=== PATIENT | male | born 1960 | race Caucasian/White ===

== ENCOUNTER 2020-04-27 11:15 | Outpatient (CLI) | payer BC ==
[2020-04-27 13:39] LABS: APPEARANCE,URINE CLEAR (CLEAR); BILIRUBIN,URINE NEGATIVE (NEGATIVE); BLOOD, URINE NEGATIVE Ery/uL (NEGATIVE); COLOR,URINE YELLOW (YELLOW); KETONES,URINE NEGATIVE (NEGATIVE); LEUKOCYTE ESTERASE ,URINE NEGATIVE (NEGATIVE); NITRITE, URINE NEGATIVE (NEGATIVE); PH,URINE 6.5 (5.0-8.0); PROTEIN,URINE NEGATIVE (NEGATIVE); UGLUCOSE NEGATIVE (NEGATIVE); UROBILINOGEN,URINE 0.2 EU/dL (0.2)
[2020-04-27 13:43] LABS: ALANINE AMINOTRANSFERASE 18 U/L (12-78); ALBUMIN 3.7 g/dL (3.4-5.0); ALKALINE PHOSPHATASE 62 U/L (46-116); ASPARTATE AMINOTRANSFERASE 14 U/L (15-37); BILIRUBIN,TOTAL 0.3 mg/dL (0.2-1.0); CALCIUM, SERUM 8.7 mg/dL (8.5-10.1); CARBON DIOXIDE 28 mmol/L (21-32); CHLORIDE 105 mmol/L (98-107); CREATININE 0.8 mg/dL (0.6-1.3); GLUCOSE 88 mg/dL (74-106); POTASSIUM 4.1 mmol/L (3.5-5.1); SODIUM SERUM 140 mmol/L (136-145); UREA NITROGEN, BLOOD 11 mg/dL (7-18)
[2020-04-27 13:49] LABS: CHOLESTEROL 150 mg/dL (<200); HDL CHOLESTEROL 44 mg/dL (40-60); LDL 100 mg/dL (0-99); PROSTATE SPECIFIC ANTIGEN SCR 1.06 ng/mL (0.00-4.00); THYROID STIMULATING HORMONE 1.405 uIU/mL (0.358-3.74); TRIGLYCERIDES 86 mg/dL (30-150)
[2020-04-27 14:06] LABS: C-REACTIVE PROTEIN < 0.2 mg/dL (0.0-0.9)
[2020-04-27 14:13] LABS: BASOPHILS % (AUTO) 0.7 % (0.0-2.0); EOSINOPHILS % (AUTO) 1.8 % (0.0-6.0); HEMATOCRIT 44 % (39-51); HEMOGLOBIN 14.8 g/dL (13.5-17.5); LYMPHOCYTES # (AUTO) 1.7 /CMM (0.8-4.8); MEAN CORPUSCULAR HGB CONC 34 g/dl (31.0-36.0); MEAN CORPUSCULAR VOLUME 95 fL (80-96); MONOCYTES # (AUTO) 0.4 /CMM (0.1-1.30); MONOCYTES % (AUTO) 7.9 % (2.0-12.0); NEUTROPHILS % (AUTO) 57.6 % (43.0-81.0); PLATELET COUNT (AUTO) 180 /CMM (150-450); RED BLOOD CELL COUNT(AUTO) 4.68 MIL/uL (4.5-6.0); WHITE BLOOD COUNT (AUTO) 5.2 K/uL (4.3-11.0)
[2020-04-28 08:12] LABS: FOLIC ACID 10.3 ng/mL (>3.0)
== END 2020-04-27 23:59 | disposition home or self-care (01) ==
LOC: MSC 11:15
PROVIDERS: ATTEND Internal Medicine
DX: R07.9 Chest pain, unspecified (principal); R29.898 Other symptoms and signs involving the musculoskeletal system; E29.1 Testicular hypofunction; Z95.5 Presence of coronary angioplasty implant and graft; Z86.79 Personal history of other diseases of the circulatory system; Z87.09 Personal history of other diseases of the respiratory system
CPT/HCPCS: 36415; 80053-TC; 80061-TC; 81000-TC; 84153-TC; 84403; 84439-TC; 84443-TC; 85025-TC; 85652-TC; 86140-TC; 86850-TC

== ENCOUNTER 2020-06-09 11:29 | Outpatient (CLI) | payer BC | END 2020-06-09 23:59 | disposition home or self-care (01) | LOC: MSC 11:29 | PROVIDERS: ATTEND Internal Medicine | DX: R07.9 Chest pain, unspecified (principal); I25.10 Atherosclerotic heart disease of native coronary artery without angina pectoris; Z95.5 Presence of coronary angioplasty implant and graft; E78.5 Hyperlipidemia, unspecified; R86.1 Abnormal level of hormones in specimens from male genital organs; R63.4 Abnormal weight loss; Z68.23 Body mass index [BMI] 23.0-23.9, adult; Z87.09 Personal history of other diseases of the respiratory system ==

== ENCOUNTER 2020-07-05 09:37 | Outpatient (CLI) | payer BC | END 2020-07-05 23:59 | disposition home or self-care (01) | LOC: MSC 09:37 | PROVIDERS: ATTEND Internal Medicine | DX: R53.1 Weakness (principal); R07.9 Chest pain, unspecified; E78.5 Hyperlipidemia, unspecified; E29.1 Testicular hypofunction; R63.4 Abnormal weight loss; Z68.25 Body mass index [BMI] 25.0-25.9, adult; Z87.09 Personal history of other diseases of the respiratory system ==

== ENCOUNTER 2020-07-28 10:34 | Outpatient (CLI) | payer BC | END 2020-07-28 23:59 | disposition home or self-care (01) | LOC: MSC 10:34 | PROVIDERS: ATTEND Internal Medicine | DX: R07.9 Chest pain, unspecified (principal); R53.1 Weakness; E78.5 Hyperlipidemia, unspecified; E29.1 Testicular hypofunction; R63.4 Abnormal weight loss; Z68.24 Body mass index [BMI] 24.0-24.9, adult; Z87.09 Personal history of other diseases of the respiratory system; Z79.01 Long term (current) use of anticoagulants ==

== ENCOUNTER 2020-08-11 08:53 | Outpatient (CLI) | payer BC | END 2020-08-11 23:59 | disposition home or self-care (01) | LOC: MSC 08:53 | PROVIDERS: ATTEND Internal Medicine | DX: R53.1 Weakness (principal); R07.9 Chest pain, unspecified; Z95.5 Presence of coronary angioplasty implant and graft; Z79.01 Long term (current) use of anticoagulants; Z87.09 Personal history of other diseases of the respiratory system; E78.5 Hyperlipidemia, unspecified; E29.1 Testicular hypofunction; Z79.899 Other long term (current) drug therapy ==

== ENCOUNTER 2020-08-18 09:03 | Outpatient (CLI) | payer BC | END 2020-08-18 23:59 | disposition home or self-care (01) | LOC: MSC 09:03 | PROVIDERS: ATTEND Internal Medicine | DX: R53.1 Weakness (principal); M54.2 Cervicalgia; E78.5 Hyperlipidemia, unspecified; E29.1 Testicular hypofunction; Z98.61 Coronary angioplasty status; Z87.09 Personal history of other diseases of the respiratory system; Z86.19 Personal history of other infectious and parasitic diseases; Z79.899 Other long term (current) drug therapy ==

== ENCOUNTER 2020-09-13 11:10 | Outpatient (CLI) | payer BC | END 2020-09-13 23:59 | disposition home or self-care (01) | LOC: MSC 11:10 | PROVIDERS: ATTEND Internal Medicine | DX: R53.1 Weakness (principal); M99.61 Osseous and subluxation stenosis of intervertebral foramina of cervical region; E78.5 Hyperlipidemia, unspecified; E29.1 Testicular hypofunction; Z98.61 Coronary angioplasty status; Z87.09 Personal history of other diseases of the respiratory system; Z79.899 Other long term (current) drug therapy ==

== ENCOUNTER 2020-10-04 10:51 | Outpatient (CLI) | payer BC | END 2020-10-04 23:59 | disposition home or self-care (01) | LOC: MSC 10:51 | PROVIDERS: ATTEND Internal Medicine | DX: R53.1 Weakness (principal); I25.10 Atherosclerotic heart disease of native coronary artery without angina pectoris; Z95.5 Presence of coronary angioplasty implant and graft; Z79.82 Long term (current) use of aspirin; Z79.899 Other long term (current) drug therapy; M50.10 Cervical disc disorder with radiculopathy, unspecified cervical region; F41.8 Other specified anxiety disorders; Z86.19 Personal history of other infectious and parasitic diseases; E78.5 Hyperlipidemia, unspecified; Z87.898 Personal history of other specified conditions ==

== ENCOUNTER 2020-10-13 12:51 | Outpatient (CLI) | payer BC | END 2020-10-13 23:59 | disposition home or self-care (01) | LOC: MSC 12:51 | PROVIDERS: ATTEND Internal Medicine | DX: R53.1 Weakness (principal); F41.8 Other specified anxiety disorders; B96.81 Helicobacter pylori [H. pylori] as the cause of diseases classified elsewhere; E78.5 Hyperlipidemia, unspecified; E29.1 Testicular hypofunction; M48.02 Spinal stenosis, cervical region; Z87.09 Personal history of other diseases of the respiratory system; Z98.61 Coronary angioplasty status; R89.1 Abnormal level of hormones in specimens from other organs, systems and tissues; Z79.899 Other long term (current) drug therapy ==

== ENCOUNTER → 2020-10-27 | Outpatient (CLI) | payer BC | END | disposition home or self-care (01) | LOC: MSC 11:30 | PROVIDERS: ATTEND Internal Medicine | DX: R53.1 Weakness (principal); F41.8 Other specified anxiety disorders; B96.81 Helicobacter pylori [H. pylori] as the cause of diseases classified elsewhere; Z86.16 Personal history of COVID-19; M48.02 Spinal stenosis, cervical region; Z86.39 Personal history of other endocrine, nutritional and metabolic disease; Z95.5 Presence of coronary angioplasty implant and graft; Z87.09 Personal history of other diseases of the respiratory system; E78.5 Hyperlipidemia, unspecified; Z71.3 Dietary counseling and surveillance; Z79.01 Long term (current) use of anticoagulants; Z79.82 Long term (current) use of aspirin; Z79.1 Long term (current) use of non-steroidal anti-inflammatories (NSAID); Z79.899 Other long term (current) drug therapy ==

== ENCOUNTER → 2020-11-01 | Outpatient (CLI) | payer BC | END | disposition home or self-care (01) | LOC: MSC 10:30 | PROVIDERS: ATTEND Internal Medicine | DX: R53.1 Weakness (principal); F41.8 Other specified anxiety disorders; Z86.16 Personal history of COVID-19; M48.02 Spinal stenosis, cervical region; Z86.39 Personal history of other endocrine, nutritional and metabolic disease; Z95.5 Presence of coronary angioplasty implant and graft; E78.5 Hyperlipidemia, unspecified; Z79.01 Long term (current) use of anticoagulants; Z79.82 Long term (current) use of aspirin; Z79.1 Long term (current) use of non-steroidal anti-inflammatories (NSAID); Z79.899 Other long term (current) drug therapy ==

== ENCOUNTER 2020-12-08 11:45 | Outpatient (CLI) | payer BC | END 2020-12-08 23:59 | disposition home or self-care (01) | LOC: MSC 11:45 | PROVIDERS: ATTEND Internal Medicine | DX: R42 Dizziness and giddiness (principal); M54.10 Radiculopathy, site unspecified; Z86.16 Personal history of COVID-19; M48.02 Spinal stenosis, cervical region; F41.8 Other specified anxiety disorders; R53.1 Weakness; B96.81 Helicobacter pylori [H. pylori] as the cause of diseases classified elsewhere; Z86.39 Personal history of other endocrine, nutritional and metabolic disease; Z95.5 Presence of coronary angioplasty implant and graft; E78.5 Hyperlipidemia, unspecified; Z79.01 Long term (current) use of anticoagulants; Z79.82 Long term (current) use of aspirin; Z79.1 Long term (current) use of non-steroidal anti-inflammatories (NSAID); Z79.899 Other long term (current) drug therapy ==